=== PATIENT | female | born 1935 | race Caucasian/White ===

== ENCOUNTER 2023-11-03 18:07 | Emergency (ER) | payer MEDICARE, OTHER ==
[2023-11-03] MEDS ORDERED: Ondansetron PF 4 MG/2 ML Vial ONE (18:56)
[2023-11-03] MEDS ORDERED: Lactated Ringer's 1,000 ML ONE (18:57)
[2023-11-03 19:24] LABS: Band 6 % (5-11); Hematocrit 40.3 % (36.0-47.0); Hemoglobin 12.5 g/dL (12.0-16.0); Hypochromia SLIGHT = 6-15 cells (100X) (0-5/hpf); Lymphocytes 11 % (21-51); MDiff Complete? YES; Mean Corpuscular HGB CONC 31.1 g/dL (32.0-36.0); Mean Corpuscular Hemoglobin 27.9 pg (27.0-31.0); Mean Corpuscular Volume 89.7 fl (78.0-98.0); Mean Platelet Volume 8.4 fL (7.4-10.4); Monocytes 4 % (0-10); Neutrophil 79 % (42-75); Platelet Adequacy Comment Appears Adequate; Platelet Count 233 10x3/uL (130-400); RBC Distribution Width 12.7 % (11.5-14.5); White Blood Cell (WBC) Count 12.6 10x3/uL (4.8-10.8)
[2023-11-03 19:27] LABS: ALT (SGPT) 19 U/L (8-55); AST (SGOT) 15 U/L (5-34); Albumin 3.7 g/dL (3.4-4.8); Alkaline Phosphatase 100 U/L (40-110); Anion Gap 18 mmol/L (10-20); BUN (Urea Nitrogen) 16 mg/dL (9.8-20.1); Bilirubin, Total 0.4 mg/dL (0.2-1.2); CK (CPK) 26 U/L (29-168); Calc. Creatinine Clearance 0 mL/min (70-130); Calcium 9.2 mg/dL (7.8-10.44); Carbon Dioxide 19 mmol/L (23-31); Chloride 106 mmol/L (98-107); Estimated GFR 70; Globulin 3.9 g/dL (2.4-3.5); Glucose 112 mg/dL (83-110); Lipase 27 U/L (8-78); Magnesium 1.9 mg/dL (1.6-2.6); Potassium 3.6 mmol/L (3.5-5.1); Protein, Total 7.6 g/dL (5.8-8.1); Sodium 139 mmol/L (136-145); Troponin I Less than 0.010 ng/mL (< 0.028)
[2023-11-03 19:29] LABS: Influenza A by NAA Not Detected (NotDetected); Influenza B by NAA Not Detected (NotDetected); SARS-CoV-2 NAA Rapid Test Not Detected (NotDetected)
[2023-11-03 20:10] LABS: Bilirubin Negative (Negative); Blood, Urine Negative (Negative); Glucose, Urine (Dipstick) Negative (Negative); Ketone, Urine Negative (Negative); Leukocyte Trace (Negative); Nitrite Positive (Negative); Protein, Urine (Dipstick) Negative (Neg-Trace); Specific Gravity, Urine 1.025 (1.005-1.030); Urobilinogen 0.2 mg/dL (Less than 2); pH, Urine 5.5 (5.0-9.0)
[2023-11-03 20:12] LABS: Bacteria/HPF 4+ HPF (None Seen); CAUTI Indications for Culture Alt mental st,lethar; Clarity Cloudy (Clear); RBC/HPF None Seen HPF (0-3); Squamous Epithelial 0-3 HPF (0-3)
[2023-11-03 20:14] LABS: Urine Culture Reflex No No
== END 2023-11-03 21:25 | disposition home or self-care (01) ==
LOC: MADERS 18:07
DX: R53.1 Weakness (principal); R82.71 Bacteriuria; E86.0 Dehydration; E03.9 Hypothyroidism, unspecified; I10 Essential (primary) hypertension
CPT/HCPCS: 36415; 51701; 71045; 80053; 81001; 82550; 83690; 83735; 83880; 84443; 84484; 85025; 87077; 87086; 93005; 94760; 96361; 96374; J2405; J7120

== ENCOUNTER 2023-11-05 13:27 | Emergency (ER) | payer MEDICARE, OTHER ==
[2023-11-05 14:44] LABS: Bilirubin Small (Negative); Blood, Urine Small (Negative); Glucose, Urine (Dipstick) Negative (Negative); Ketone, Urine Negative (Negative); Leukocyte Small (Negative); Nitrite Positive (Negative); Protein, Urine (Dipstick) 100 mg/dL (Neg-Trace); Specific Gravity, Urine 1.025 (1.005-1.030); Urobilinogen 0.2 mg/dL (Less than 2)
[2023-11-05 14:54] LABS: Clarity Cloudy (Clear)
[2023-11-05 14:55] LABS: Bacteria/HPF 3+ HPF (None Seen); CAUTI Indications for Culture Pelvic or flank pain; WBC/HPF 21-50 HPF (0-3)
[2023-11-05 14:56] LABS: Urine Culture Reflex Yes Yes
[2023-11-05 15:01] LABS: ALT (SGPT) 427 U/L (8-55); AST (SGOT) 629 U/L (5-34); Albumin 3.1 g/dL (3.4-4.8); Alkaline Phosphatase 156 U/L (40-110); Anion Gap 14 mmol/L (10-20); BUN (Urea Nitrogen) 16 mg/dL (9.8-20.1); Bilirubin, Total 0.4 mg/dL (0.2-1.2); Calc. Creatinine Clearance 0 mL/min (70-130); Calcium 8.8 mg/dL (7.8-10.44); Carbon Dioxide 20 mmol/L (23-31); Chloride 104 mmol/L (98-107); Estimated GFR 51; Globulin 3.7 g/dL (2.4-3.5); Glucose 109 mg/dL (83-110); Lipase 458 U/L (8-78); Protein, Total 6.8 g/dL (5.8-8.1); Sodium 135 mmol/L (136-145)
[2023-11-05] MEDS ORDERED: Sodium Chloride 0.9% 100 ML ONE (15:05)
[2023-11-05] MEDS ORDERED: cefTRIAXone (ROCEPHIN) 2 GM VIAL ONE (15:05)
[2023-11-05 15:06] LABS: Hematocrit 37.3 % (36.0-47.0); Hemoglobin 11.8 g/dL (12.0-16.0); Mean Corpuscular HGB CONC 31.6 g/dL (32.0-36.0); Mean Corpuscular Volume 88.7 fl (78.0-98.0); Mean Platelet Volume 8.1 fL (7.4-10.4); Platelet Count 186 10x3/uL (130-400); RBC Distribution Width 12.3 % (11.5-14.5); Red Blood Cell (RBC) Count 4.21 mill/uL (4.20-5.40); White Blood Cell (WBC) Count 6.7 10x3/uL (4.8-10.8)
[2023-11-05 15:09] LABS: MDiff Complete? YES
[2023-11-05 15:10] LABS: Eosinophils 2 % (0-10); Monocytes 10 % (0-10); Neutrophil 65 % (42-75)
[2023-11-05 15:11] LABS: Lymphocytes 21 % (21-51)
[2023-11-05 15:12] LABS: Band 2 % (5-11)
[2023-11-05] MEDS ORDERED: Sodium Chloride 0.9% 1,000 ML ONE (16:11)
[2023-11-05] MEDS ORDERED: Potassium Chloride 20 MEQ TAB ONE (17:59)
[2023-11-05] MEDS ORDERED: NS 0.9% w/ 20 MEQ KCL 1,000 ML ONE (17:59)
[2023-11-05 22:33] LABS: HBCM Index 0.09 S/CO (0-0.79); HBsAg Index 0.26 S/CO (0-0.99); Hep A IgM AB NONREACTIVE (NonReactive); Hep B Surf Ag NONREACTIVE S/CO (NonReactive); Hep C IgG Ab NONREACTIVE S/CO (NonReactive); Hep C Index 0.16 S/CO (0-0.79); Hepatitis B Core IgM Abs NONREACTIVE S/CO (NonReactive)
[2023-11-07 06:23] LABS: Campy jejuni + coli by PCR Negative (Negative); STEC Shiga Toxin 1+2 Negative (Negative); Salmonella spp. by PCR POSITIVE (Negative); Shigella spp + EIEC by PCR Negative (Negative)
== END 2023-11-05 20:21 | disposition short-term general hospital (02) ==
LOC: MADERS 13:27
DX: E86.0 Dehydration (principal); K52.9 Noninfective gastroenteritis and colitis, unspecified; B17.9 Acute viral hepatitis, unspecified; N39.0 Urinary tract infection, site not specified; M25.551 Pain in right hip; R53.1 Weakness; I10 Essential (primary) hypertension; E03.9 Hypothyroidism, unspecified; F03.90 Unspecified dementia, unspecified severity, without behavioral disturbance, psychotic disturbance, mood disturbance, and anxiety; Z79.899 Other long term (current) drug therapy
CPT/HCPCS: 51701; 70450; 72170; 73502; 80074; 81001; 83690; 87077; 87086; 87147; 87186; 87505; 96361; 96365; 96375; 99285; J0696; J3480; J7030; 36415; 80053; 84443; 85025